=== PATIENT | female | born 2000 | race Caucasian/White ===

== ENCOUNTER 2019-08-17 14:04 | Emergency (ER) | payer OTHER, SELFPAY ==
[2019-08-17 14:17] VITALS: BP 131/75; PULSE 95; RESP 16; TEMP 36.7; O2SAT 98
--- NOTE | 2019-08-17 15:13 | ED.FEMALEGU ---
HPI - Female Genitourinary General Chief complaint: Urogenital-Female Stated complaint: Pos UTI Source: patient and RN notes reviewed Mode of arrival: ambulatory Limitations: no limitations History of Present Illness HPI Narrative: The patient, a non-smoker/nondrinker, presents with 1/2-week history of typical urinary frequency, burning dysuria, and urgency. No fever, low back pain, blood, vomiting/diarrhea/dehydration, prior surgeries, vaginal discharge. 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] Related Data Home Medications Medication Instructions Recorded Confirmed ascorbic acid (vitamin C) [Vitamin 1 g PO DAILY 08/17/19 08/17/19 C] cetirizine [Zyrtec] 10 mg PO DAILY 08/17/19 08/17/19 metformin 1,000 mg PO DAILY 08/17/19 08/17/19 polyethylene glycol 3350 [Miralax] 17 g PO DAILY 08/17/19 08/17/19 sertraline 100 mg PO DAILY 08/17/19 08/17/19 Allergies Allergy/AdvReac Type Severity Reaction Status Date / Time No Known Allergies Allergy Verified 08/17/19 14:21 Review of Systems Review of Systems: Narrative: General/Constitutional: Denies: weight loss,fever Eyes: Denies: Redness,discharge Ears/Nose/Throat: Denies: Epistaxis,ear discharge Respiratory: Denies: Hemoptysis Gastrointestinal: Denies: Vomiting, Bleeding-rectal Skin: Denies: drainage Neurologic: Denies: Focal Weakness,Sz Hematologic: Denies: Petechiae/Purpura Psychiatric: Denies: Suicidal ideation PMFSH Comments At time of signature, agree with nursing past medical, surgical, social and family history. There is no relevant family history pertinent to the presenting complaint Exam Narrative: Exam Narrative: General Appearance: Well appearing, No distress EYE: PERRLA, Conjunctiva clear Ears: External ear normal Nose: Normal nose Mouth/Throat: Normal appearing, Normal lips Neck: Supple Respiratory: Airway patent, No respiratory distress Cardiovascular: RRR Abdomen: Soft, Non-tender, No massess, No organomegaly (no rebound/ surgical signs), Hyperactive bowel sounds Musculoskeletal: Full ROM Skin: Warm, Dry Neurological: A&O x3, CN II-X intact Psychiatric: Normal mood, Normal affect Course Vital Signs Vital signs: Vital Signs Temperature 98.0 F 08/17/19 14:17 Pulse Rate 95 08/17/19 14:17 Respiratory Rate 16 08/17/19 14:17 Blood Pressure 131/75 08/17/19 14:17 Pulse Oximetry 98 08/17/19 14:17 Temperature 98.0 F 08/17/19 14:17 Pulse Rate 95 08/17/19 14:17 Respiratory Rate 16 08/17/19 14:17 Blood Pressure 131/75 08/17/19 14:17 Pulse Oximetry 98 08/17/19 14:17 MDM - Female Genitourinary Lab Data Labs: Urine Glucose Negative Reference Range: Negative Urine Bilirubin Negative Reference Range: Negative Urine Ketone Negative Reference Range: Negative Urine Specific [place] 1.030 Reference Range:1.001-1.035 Urine Blood 1+ Reference Range: Negative * * Urine pH 5.5 Reference Range: 5.0-9.0 Urine Protein 1+ Reference Range: Negative Urine Urobilinogen 0.2 Reference Range: 0.2-1.0 Urine Nitrate Positive Reference Range: Negative Urine Leukocyte 1+ Reference Range: Negative Urine Color Light/Pale Reference Range: Yellow Urine Characteristics Cloudy Discharge Plan Discharge Clinical Impression: Urinary tract infection Qualifiers: Urinary tract infection type: acute cystitis Hematuria presence: without hematuria Qualified Code(s): N30.00 - Acute cystitis without hematuria Patient Disposition: Home, Self-Care Condition: Stable Instructions: Antibiotic Form, Urinary Tract Infection in Women (ED) Prescr
== END 2019-08-17 15:00 | disposition home or self-care (01) ==
PROVIDERS: Emergency Provider Emergency Medicine
DX: N30.00 Acute cystitis without hematuria (principal); J45.909 Unspecified asthma, uncomplicated; E28.2 Polycystic ovarian syndrome; F41.9 Anxiety disorder, unspecified; F32.9 Major depressive disorder, single episode, unspecified
CPT/HCPCS: 81003; 87086; 87088; 99203; G0463